=== PATIENT | female | born 1990 | race Caucasian/White ===

== ENCOUNTER 2023-12-02 07:54 | Outpatient (AMB) | payer BC, SELFPAY ==
--- NOTE | 2023-12-02 07:59 | MHC.PC.OV ---
Vital Signs 12/02/23 08:08 Height 5 ft 0.24 in Weight 165 lb BMI 32.0 BP 126/84 Blood Pressure Location Rt brachial Position Sitting Respiration 12 Pulse 99 Pulse Source Pulse Oximeter Temp 97.6 F Temp Source Oral Pulse Oximetry (%) 97 Oxygen Delivery Method Room Air Intake Visit Reasons: Establish Care transfer from [facility] Intake Note: New patient visit Gis Specialist Required: No Allergies doxycycline Allergy (Severe, Verified 12/02/23 08:04) Vomiting amoxicillin [From Augmentin] Allergy (Mild, Verified 12/02/23 08:04) Vomiting clavulanic acid [From Augmentin] Allergy (Mild, Verified 12/02/23 08:04) Vomiting erythromycin base Allergy (Unknown, Verified 12/02/23 08:04) Rash Medication List - Last Reconciled 12/02/23 by Trudy Lopez PA-C drospirenone-ethinyl estradiol 3-0.02 mg (Jackie (28)) tabs PO lisdexamfetamine (Vyvanse) 70 mg PO QAM venlafaxine ER (Effexor XR) 150 mg PO DAILY Tobacco use date assessed: 12/02/23 Dental Screening Dental Screen Date: 12/02/23 Did you have a dental visit in the last 12 months?: Yes Did you have a dental problem in the last 6 months where you did not have access to dental care?: No Was dental information given to patient?: Patient has dentist HPI Establish Care transfer from [facility] HPI Details Patient is a 33-year-old female with a significant past medical history of ADHD, anxiety, depression, and hx of migraines, presenting today to establish care. She is transferring from [facility]. Psych: She has been well-controlled on Effexor 150 mg and Vyvanse 70 mg daily. Denies any SI/HI. Neuro: sees Neurology at [facility] for trigger point injections to prevent migraines. She states that she has not had a migraine in 2 years. CV: bp today is a little borderline but at neurology 2 weeks ago it was 112/70. She gets nervous in new places. Derm: follows annually with [facility] for skin checks, no personal hx of skin ca or fam hx. International Travel Consultant: Up-to-date, on OCPs, follows with [facility]- has appointment today. Family history: Sister has anxiety, parents have anxiety and depression. 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 [facility] Medical History (Updated 12/02/23 @ 09:14 by Kyleigh Abrams CMA) Sinus infection ADHD (attention deficit hyperactivity disorder) Methylenetetrahydrofolate reductase (MTHFR) deficiency Dysthymia Depression Migraines Anxiety Family History (Updated 12/02/23 @ 09:15 by Kyleigh Abrams CMA) Father HTN (hypertension) Hypercholesteremia Other FH: mental illness Social History (Updated 12/02/23 @ 08:06 by Kyleigh Abrams CMA) Housing: House Patient Tobacco Use Status: Never used Tobacco e-Cigarette/Vaping Use: Never Used Second Hand Smoke Exposure: No service: No Current occupational status: employed Current occupation: fixed assets accountant Current occupational exposures/hazards: No Cognitive needs: No Hearing needs: No Vision needs: Yes (glasses) Questionnaire PHQ-9 Over the last 2 weeks, how often have you been bothered by any of the following problems? 1. Little interest or pleasure in doing things: not at all 2. Feeling down, depressed, or hopeless: not at all 3. Trouble falling or staying asleep, or sleeping too much: several days 4. Feeling tired or having little energy: several days 5. Poor appetite or overeating: several days 6. Feeling bad about yourself - or that you are a failure or have let yourself or your family down: not at all 7. Trouble concentrating on things, such as reading the newspaper or watching television: several days 8. Moving or speaking so slowly that other people could have noticed. Or the opposite - being so fidgety or restless that you have been moving around a lot more than usual: not at all 9. Thoughts that you would be better off or of hurting yourself in some way: not at all Total score: 4 Depression Screening Interpretation: Positive Depression Screening Follow-up: Existing condition, In treatment and Community Mental Health Worker F/U Depression Screening Done: Yes 77814 - PHQ-9 Billing: Yes Source: Developed by Drs. Chino Capone, Katie Booth, Rehan Hammond and colleagues, with an educational grzegorz from [employer]. Thrive Questionnaire Date Thrive assessed: 12/02/23 I am a: Patient What is your living situation today?: I have a steady place to live Within the past 12 months, did the food you bought not last and you didn't have the money to get more?: Never true Within the past 12 months, did you worry whether your food would run out before you got money to buy more?: Never true Do you have trouble paying for medicines?: No Do you have trouble getting transportation to medical appointments?: No Do you have trouble paying your heating and electricity bill?: No Do you have trouble taking care of your child, family member or friend?: No Do you have trouble with day-to-day activities such as bathing, preparing meals, shopping, managing finances, etc.?: No Are you currently unemployed and looking for a job?: No Are you interested in more education?: No Please select the resources that you would like help with: None THRIVE Score: 0 AUDIT C Alcohol Use Questionnaire (AUDIT-C) 1. How often do you have a drink containing alcohol?: Monthly or less 2. How many drinks containing alcohol do you have on a typical day when you are drinking?: 1 or 2 3. How often do you have six or more drinks on one occasion?: Never Total Score: 1 BOLA-7 AMB Questionnaire BOLA-7 Date BOLA - 7 assessed: 12/02/23 Feeling nervous, anxious, or on edge: 1 = Several days Not being able to stop or control worryin = Not at all Worrying too much about different things: 0 = Not at all Trouble relaxin = Several days Being so restless that it is hard to sit still: 1 = Several days Becoming easily annoyed or irritable: 1 = Several days Feeling afraid as if something awful might happen: 0 = Not at all Total BOLA-7 score (0-4 normal; 5-9 mild; 10-14 moderate; 15-21 severe): 4 Source: Developed by Drs. Chino Capone, Katie Booth, Rehan Hammond and colleagues, with an educational grzegorz from [employer]. BOLA-7 Assessment Billing BOLA-7 Assessment Tool: BOLA-7 Assessment 41154 Physical exam (Primary Care) Vital Signs: Last Vital Signs Temp 97.6 F 12/02/23 08:08 Pulse 99 12/02/23 08:08 Resp 12 12/02/23 08:08 BP 126/84 12/02/23 08:08 Pulse Ox 97 12/02/23 08:08 Oxygen Delivery Method Room Air 12/02/23 08:08 BMI result Body Mass Index 32.0 Tobacco/Smoking Status: Tobacco use Status Tobacco use date assessed 12/02/23 12/02/23 08:09 Patient Tobacco Use Status Never used Tobacco 12/02/23 08:09 e-Cigarette/Vaping Use Never Used 12/02/23 08:09 Depression Screening Interpretation: Positive Depression Screening Follow-up: Existing condition, In treatment and Community Mental Health Worker F/U Const Orientation/consciousness: patient oriented x3 HENMT Ears: hearing grossly normal bilaterally and TM's normal bilaterally General nose exam: No nasal polyps present Face and sinus: Yes sinuses nontender Mouth: Normal oral and palatal mucosa present Eyes Pupils: Equal, round and reactive pupils present EOM: EOMs intact bilaterally Neck Neck: Yes full ROM and Yes no lymphadenopathy Thyroid: Thyroid normal Chest Chest palpation & inspection: normal inspection of the chest Resp Auscultation: clear to auscultation bilaterally Cardio Rate: regular rate Rhythm: regular rhythm Heart sounds: S1 normal heart sound present and S2 normal heart sound present Peripheral pulses: Peripheral pulses 2+ throughout GI Other: Soft, nontender Auscultation: normal bowel sounds Rectal Exam - Female: deferred General: Yes no CVA tenderness Back/Spine/Pelvis Other: Nontender Back: no CVA tenderness Skin General skin exam: no rashes or lesions noted Neuro General: patient oriented x3, gait normal, CN's II-XI intact bilaterally and deep tendon reflexes 2+ bilaterally Cranial nerves: Yes Equal, round and reactive pupils present Motor exam (neuro): 5/5 motor strength present throughout Sensory Exam: double simultaneous stimulation for sensation normal Coordination: [id number] test normal and Romberg test negative Extrem General: Yes normal to inspection and Yes full ROM Psych Affect: normal affect Attitude: cooperative Thought process: Normal thought process present Thought content: Normal thought content present Insight: Good insight present (Psych) Judgement: Good judgement present (Psych) Assessment and Plan Assessment & Plan (1) Routine general medical examination at a health care facility: Code(s): Z00.00 - Encounter for general adult medical examination without abnormal findings Plan: hm reviewed. seeing wastewater treatment plant attendant today. follows with psychiatry. (2) Dysthymia: Code(s): F34.1 - Dysthymic disorder Plan: follows with psychiatry. well controlled. did genetic testing for effexor. (3) Generalized anxiety disorder: Code(s): F41.1 - Generalized anxiety disorder Plan: as above. stable (4) Methylenetetrahydrofolate reductase (MTHFR) deficiency: Code(s): E72.12 - Methylenetetrahydrofolate reductase deficiency Plan: had labs through psychiatry and is on the Methyl folate + with L-5-MTHF + Methyl b12 will check b12 (5) ADHD (attention deficit hyperactivity disorder): Code(s): F90.9 - Attention-deficit hyperactivity disorder, unspecified type Qualifiers: Attention deficit-hyperactivity disorder type: combined inattentive-hyperactive Qualified Code(s): F90.2 - Attention-deficit hyperactivity disorder, combined type Plan: well controlled with vyvanse Plan ref to [facility] for insurance Orders: Orders Complete Blood Count Auto Diff Today F34.1 - Dysthymic disorder, F41.1 - Generalized anxiety disorder, Z00.00 - Encounter for general adult medical examination without abnormal findings Lipid Panel Today F34.1 - Dysthymic disorder, F41.1 - Generalized anxiety disorder, Z00.00 - Encounter for general adult medical examination without abnormal findings TSH reflex Free T4 Today F34.1 - Dysthymic disorder, F41.1 - Generalized anxiety disorder, Z00.00 - Encounter for general adult medical examination without abnormal findings Comprehensive Reeves. Panel Fast Today F34.1 - Dysthymic disorder, F41.1 - Generalized anxiety disorder, Z00.00 - Encounter for general adult medical examination without abnormal findings Vitamin B12 and Folate Today F34.1 - Dysthymic disorder, F41.1 - Generalized anxiety disorder, Z00.00 - Encounter for general adult medical examination without abnormal findings Referrals Dermatology Referral D22.9 - Melanocytic nevi, unspecified Coding Level of Care Code New Pt Prev Care 18-39yr([id number] Diagnoses Routine general medical examination at a health care facility Z00.00 Dysthymia F34.1 Generalized anxiety disorder F41.1 Methylenetetrahydrofolate reductase (MTHFR) deficiency E72.12 Attention deficit hyperactivity disorder (ADHD), combined type F90.2 Attention deficit-hyperactivity disorder type: combined inattentive-hyperactive Additional Codes BOLA-7 Assessment Billing - BOLA-7 Assessment Tool: BOLA-7 Assessment [id number] ([id number])
[2023-12-02 08:08] VITALS: BP 126/84; PULSE 99; RESP 12; TEMP 36.4; O2SAT 97; BMI 32.0
== END 2023-12-02 11:03 | disposition home or self-care (01) ==
PROVIDERS: Visit Provider Physician Assistant
DX: Z00.00 Encounter for general adult medical examination without abnormal findings (principal); F34.1 Dysthymic disorder; F41.1 Generalized anxiety disorder; E72.12 Methylenetetrahydrofolate reductase deficiency; F90.2 Attention-deficit hyperactivity disorder, combined type
CPT/HCPCS: 99385

== ENCOUNTER 2023-12-02 08:45 | Outpatient (REF) | payer BC, SELFPAY ==
[2023-12-02 11:21] LABS: MANUAL DIFF FLAG NO
[2023-12-02 11:31] LABS: Basophils Percent Auto 0.4 % (0-2); Eosinophils Absolute Auto 0.2 X10*3/uL (0.0-0.4); Hematocrit 42.7 % (37.0-47.0); Imm Gran Abs Auto 0.04 X10*3/uL (0.00-0.03); Imm Gran Pct Auto 0.4 % (0.0-0.4); Mean Corpuscular HGB Conc 32.8 g/dl (31.0-35.0); Mean Corpuscular Hemoglobin 27.2 pg (27.0-33.0); Mean Corpuscular Volume 82.9 fL (80.0-98.0); Mean Platelet Volume 9.7 fL (9.4-12.3); Monocytes Absolute Auto 0.9 X10*3/uL (0.1-1.2); Monocytes Percent Auto 9.2 % (2-11); Neutrophils Absolute Auto 6.6 x10*3/uL (2.0-8.3); Platelet Count 370 X10*3/uL (160-400); Red Blood Count 5.15 X10*6/uL (4.20-5.50); Red Cell Distribution Width 12.9 % (11.0-16.0); White Blood Count 9.7 X10*3/uL (4.8-10.8)
[2023-12-02 11:49] LABS: Alanine Aminotransferase 43 U/L (0-31); Albumin Level 4.3 g/dL (3.5-5.0); Alkaline Phosphatase 75 U/L (39-117); Anion Gap 13 (12-20); Aspartate Amino Transferase 23 U/L (5-31); Bilirubin Total 0.2 mg/dL (0.0-1.0); Blood Urea Nitrogen 10 mg/dL (9-16); Calcium 9.6 mg/dL (8.4-10.2); Carbon Dioxide 23 mmol/L (22-29); Chloride 107 mmol/L (96-108); Cholesterol 190 mg/dL (<200); Estimated Glomerular Filt Rate > 60; Glucose Fasting 95 mg/dL (60-99); HDL Cholesterol 60 mg/dL (>40); LDL Cholesterol Calculated 114 mg/dL (<100); Potassium 4.2 mmol/L (3.3-5.1); Sodium 139 mmol/L (135-145); Total Protein 7.5 g/dL (6.5-8.0); Triglycerides 80 mg/dL (<150)
[2023-12-02 12:05] LABS: TSH reflex Free T4 1.12 uIU/mL (0.32-4.0)
[2023-12-02 12:13] LABS: Folate 13.3 ng/mL (> or = 4.0); Vitamin B12 859 pg/mL (200-900)
== END 2023-12-02 08:46 | disposition home or self-care (01) ==
LOC: HO.WFDLDS 08:45
PROVIDERS: Visit Provider Physician Assistant
DX: Z00.00 Encounter for general adult medical examination without abnormal findings (principal); F34.1 Dysthymic disorder; F41.1 Generalized anxiety disorder
CPT/HCPCS: 36415; 80053; 80061; 82607; 82746; 84443; 85025